=== PATIENT | female | born 1965 | race Two or more races ===

== ENCOUNTER 2018-04-29 19:46 | Emergency (ER) | payer OTHER ==
[~2018-04-29] VITALS: Ht 149.9 cm; Wt 45.4 kg
[2018-04-29 19:50] VITALS: BP_SYST 135
--- NOTE | 2018-04-29 19:50 | NUR ---
Patient to ER bed 3 to gown for evaluation. Side rails up. Report given to [facility].
--- NOTE | 2018-04-29 20:00 | NUR ---
Patient to ER via EMT ambulance for evaluation of non-syncopal, mechanical trip and fall. No LOC reported, no neck/back pain. Patient is awake, alert and oriented in mild distress, moving all extremities without difficulty. Vital signs stable, respirations even and unlabored. Patient with c/o pain to head/chin lac, right elbow abrasion, and pain to left sided ribs, which patient states is worse with inspiration. Patient c/o feeling cold, provided with additional warm blankets for patient comfort. Awaiting evaluation by ER MD, will continue to observe and assess. Family remains at bedside.
--- NOTE | 2018-04-29 20:15 | NUR ---
Dr Abernathy at bedside to evaluate patient.
[2018-04-29] MEDS ORDERED: DIPH-TET-PERTUS Vaccine 0.5 ML VIAL (ADACEL) I.M. ONE (20:45)
[2018-04-29] MEDS ORDERED: KETOROLAC TROMETHAMINE 60 MG/2 ML VIAL IM ONE (20:45)
--- NOTE | 2018-04-29 21:00 | NUR ---
Patient changed into gown for radiology procedure. Patient provided with chemical cold pack for right elbow swelling/pain. Patient provided with warm blankets for patient comfort.
[2018-04-29] MEDS ORDERED: KETOROLAC TROMETHAMINE 30 MG VIAL ONE (21:18)
--- NOTE | 2018-04-29 21:20 | NUR ---
Patient to CT scan via gurney in stable condition.
[2018-04-29] MEDS ORDERED: LIDOCAINE 1% 10 MG/ML, 20 ML MDV INJ ONE (22:15)
--- NOTE | 2018-04-29 22:20 | NUR ---
Unable to scan Toradol, had to manually enter. Able to scan patient, but had to manually enter medication information. Patient did not receive Adacel, unable to remove medication from Pyxis, Pyxis is non-functional. Dr Abernathy aware.
--- NOTE | 2018-04-29 23:15 | NUR ---
Abrasions cleansed with NS, dressing applied to chin laceration repair done by Dr Abernathy. Patient with posterior splint to right arm after closed reduction done by Dr Abernathy, sling applied to right arm.
[2018-04-29] MEDS ORDERED: cefTRIAXone 1 GM VIAL IM ONE (23:30)
--- NOTE | 2018-04-29 23:30 | NUR ---
X-ray at bedside to do post-reduction films. Patient resting quietly in no acute distress.
[2018-04-29] MEDS ORDERED: cefTRIAXone 1 GM VIAL ONE (23:33)
[2018-04-30 00:25] VITALS: BP_SYST 136
--- NOTE | 2018-04-30 00:25 | NUR ---
Patient given written and verbal discharge instructions and verbalizes understanding. ER MD discussed with patient the results and treatment provided. Patient in stable condition. ID arm band removed. Rx of Tramadol, Motrin, Clindamycin given. Patient educated on pain management and to follow up with PMD. Pain Scale 2. Opportunity for questions provided and answered. Medication side effect fact sheet provided. Patient left ER in no acute distress via wheelchair, with family at bedside. No adverse reaction noted to medication. No questions related to aftercare.
[2018-04-30] MEDS ORDERED: KETOROLAC TROMETHAMINE 60 MG/2 ML VIAL IM ONE (00:45)
== END 2018-04-30 00:25 | disposition home or self-care (01) ==
LOC: SED 19:46
DX: S52.021A Displaced fracture of olecranon process without intraarticular extension of right ulna, initial encounter for closed fracture (principal); S01.81XA Laceration without foreign body of other part of head, initial encounter; R03.0 Elevated blood-pressure reading, without diagnosis of hypertension; W01.0XXA Fall on same level from slipping, tripping and stumbling without subsequent striking against object, initial encounter; Y93.89 Activity, other specified; Y92.89 Other specified places as the place of occurrence of the external cause; Y99.8 Other external cause status
CPT/HCPCS: 12013; 24675; 70450; 70486; 71045; 71100; 73070; 73080; 96372; 99284; J0696; J1885